=== PATIENT | female | born 1995 ===

== ENCOUNTER 2023-03-28 06:38 | Emergency (ER) | payer SELFPAY ==
--- NOTE | 2023-03-28 06:52 | PC.NURSE ---
0647 - Pt came up to the desk and stated that her price clerk finally got back to her and told her they would see her in the office at 0720 today to examine her right eye. Pt had stated that she believed she scratched her cornea again from something that got underneath her contact. Pt was not triage prior to walking out.
== END 2023-03-28 07:06 | disposition left against medical advice (07) ==
LOC: ANHED 06:54
DX: Z53.21 Procedure and treatment not carried out due to patient leaving prior to being seen by health care provider (principal)
CPT/HCPCS: 99199